=== PATIENT | female | born 1990 | race Caucasian/White ===

== ENCOUNTER 2023-02-19 14:17 | Outpatient (AMB) | payer OTHER, SELFPAY ==
--- NOTE | 2023-02-19 14:18 | MHC.OFFVIS ---
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 She states that for about 2 years she has been having left neck twitching lasting between a few seconds. SHe states they are constant, and intensify occasionally. She denies pain associated with this. Inspector And Mender Required: No Allergies amoxicillin [From Amoxil] Allergy (Intermediate, Verified 02/19/23 14:23) Vomiting flagyl Allergy (Mild, Uncoded 02/19/23 14:23) Hives Medication List - Last Reconciled 02/19/23 by Anne Copeland MD baclofen 5 mg PO BEDTIME desogestrel-ethinyl estradiol 0.15-0.03 mg (Apri) 1 tab PO DAILY magnesium oxide 400 mg PO DAILY HPI HPI Comments History of Present Illness Details 32y/o female comes for evaluation of muscle twitching in her neck on the lest side. It started about 2 years ago and it is constant. she is not aware of any triggering or relieving factors. she started having constant headaches few months ago . The headaches are in left parietal region - throbbing - ibuprofen helps. No light or noise sensitivity. No nause. she denies neck pain Denies pain. she had an episode of vertigo in spring - lasting 1 hr and another lasting 4-5 hrs. she has chronic sinus and ear issues , snores when supine. [facility] Medical History (Updated 02/19/23 @ 15:00 by Anne Copeland MD) Cervicogenic headache Cervicalgia Abnormal involuntary movements Seasonal allergies Head ache Surgical History Hx of tonsillectomy Family History Father No problems noted. Mother Diabetes HTN (hypertension) Brother No problems noted. Sister PCOS (polycystic ovarian syndrome) Social History Household Members: None Housing: Condominium Alcohol intake: current Patient Tobacco Use Status: Never used Tobacco Female Reproductive History Menstrual control method: pills Total pregnancies: 0 Review of Systems Const Reports fatigue, Reports headache(s) and Reports weight loss ENT Reports headache(s) Neuro Reports headache(s) Endo Reports fatigue Physical Exam Vital Signs: Last Vital Signs Pulse 72 02/19/23 14:19 Resp 16 02/19/23 14:19 BP 108/72 02/19/23 14:19 Pulse Ox 99 02/19/23 14:19 Oxygen Delivery Method Room Air 02/19/23 14:19 BMI result Body Mass Index 26.2 Const General: cooperative, healthy appearing, comfortable and no acute distress Nutritional Appearance: average body habitus Orientation/consciousness: patient oriented x3 HEENT Other: Neck tightness and tenderness on palpation in armando neck muscles , twitching of left splenius levator - involuntary and irregular Restricted mouth opening and neck movements Eyes Pupils: Equal, round and reactive pupils present Neuro General: patient oriented x3, gait normal, tone normal, moves all extremities and no focal motor deficits Cranial nerves: Yes Facial sensation intact/muscles of mastication intact, Yes Equal, round and reactive pupils present, Yes Bilaterally intact EOM present, Yes Nystagmus not present, Yes Normal facial strength present and Yes Midline tongue present Cognition (Neuro): normal cognition Gait exam (Neuro): Normal gait present Motor exam (neuro): 5/5 motor strength present throughout and Normal motor muscle tone present throughout Deep tendon reflexes (DTR's): Right triceps reflex intensity grade: 2+, Left triceps reflex intensity grade: 2+, Rt Biceps (C5, C6): 2+, Left biceps reflex intensity grade: 2+, Right brachioradialis reflex intensity grade: 2+, Left brachioradialis reflex intensity grade: 2+, Right patellar reflex intensity grade: 2+ and Left patellar reflex intensity grade: 2+ Coordination: kdcjml-kh-npjw test normal Assessment & Plan Assessment & Plan (1) Abnormal involuntary movements: Comment: Likely related to cervical dystonia Code(s): R25.9 - Unspecified abnormal involuntary movements (2) Cervicalgia: Code(s): M54.2 - Cervicalgia (3) Cervicogenic headache: Code(s): G44.86 - Cervicogenic headache Plan I will evaluate her with MRI brain EEG and C spine X ray I will trial her on magnesium 400mg qhs and baclofen 5 mg qhs will consider PT and botox next visit. Orders: Orders EEG electroencephalogram Today R25.9 - Unspecified abnormal involuntary movements XR cervical spine 3V Today M54.2 - Cervicalgia MR head/brain wo con Today R25.9 - Unspecified abnormal involuntary movements Medications: New baclofen 5 mg PO BEDTIME 30 tabs 5RF magnesium oxide 400 mg PO DAILY 30 caps 6RF Coding Level of Care Code New Pt Level 4 (05116) Diagnoses Abnormal involuntary movements R25.9 Cervicalgia M54.2 Cervicogenic headache G44.86
[2023-02-19 14:19] VITALS: BP 108/72; PULSE 72; RESP 16; O2SAT 99; BMI 26.2
== END 2023-02-19 14:56 | disposition home or self-care (01) ==
PROVIDERS: PCP Internal Medicine; Visit Provider Psychiatry & Neurology Neurology
DX: R25.9 Unspecified abnormal involuntary movements (principal); M54.2 Cervicalgia; G44.86 Cervicogenic headache
CPT/HCPCS: 99204

== ENCOUNTER → 2023-02-19 14:17 | Outpatient (BNVA) | payer OTHER, SELFPAY | PROVIDERS: PCP Internal Medicine; Visit Provider Psychiatry & Neurology Neurology ==

== ENCOUNTER 2023-04-08 07:57 | Outpatient (REF) | payer OTHER, SELFPAY ==
--- NOTE | 2023-04-08 08:01 | EEG_ITS ---
FINDINGS: Waking background activity consists of well-defined, moderate voltage, 9 to 9.5 hertz posterior alpha frequency that is seen symmetrically and attenuates well with eye opening while low-voltage fast frequencies predominate anteriorly. Photic stimulation is without activation. Hyperventilation was omitted. No focal, lateralizing, or paroxysmal discharges are seen. IMPRESSION: This waking EEG is within normal limits. MD BAYLEE Michel/DANNIE / [id number]
== END 2023-04-08 07:58 | disposition home or self-care (01) ==
LOC: HO.NEURO 07:57
PROVIDERS: PCP Internal Medicine; Visit Provider Psychiatry & Neurology Neurology
DX: R25.9 Unspecified abnormal involuntary movements (principal)
CPT/HCPCS: 95816

== ENCOUNTER 2023-05-14 14:37 | Outpatient (AMB) | payer OTHER, SELFPAY ==
--- NOTE | 2023-05-14 14:44 | A.OFFVIS_ITS ---
Intake Vital Signs 05/14/23 14:46 Height 5 ft 1 in Weight 135 lb BMI 25.5 BP 98/62 Blood Pressure Location Rt brachial Position Sitting Respiration 17 Pulse 77 Pulse Source Pulse Oximeter Pulse Oximetry (%) 97 Oxygen Delivery Method Room Air Intake Visit Reasons: 3 mnts f/u for Muscle Twitching-CONF Intake Note: Pt presents for a 2 month follow up for involuntary movement. 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 she takes magnesium qhs but still has increased headaches. It started about 2 years ago and it is constant. she is not aware of any triggering or relieving factors. she started having constant headaches few months ago . The headaches are in left parietal region - throbbing - ibuprofen helps. No light or noise sensitivity. No nausea. she denies neck pain Denies pain. she had an episode of vertigo in spring - lasting 1 hr and another lasting 4-5 hrs. she has chronic sinus and ear issues , snores when supine. [facility] Medical History (Updated 05/14/23 @ 15:02 by Anne Copeland MD) Spasmodic torticollis Cervicogenic headache Cervicalgia Abnormal involuntary movements Seasonal allergies Head ache Surgical History Hx of tonsillectomy Family History Father No problems noted. Mother Diabetes HTN (hypertension) Brother No problems noted. Sister PCOS (polycystic ovarian syndrome) Social History Household Members: None Housing: Condominium Alcohol intake: current Patient Tobacco Use Status: Never used Tobacco Physical Exam Vital Signs: Last Vital Signs Pulse 77 05/14/23 14:46 Resp 17 05/14/23 14:46 BP 98/62 05/14/23 14:46 Pulse Ox 97 05/14/23 14:46 Oxygen Delivery Method Room Air 05/14/23 14:46 BMI result Body Mass Index 25.5 Const General: cooperative, healthy appearing, comfortable and no acute distress Nutritional Appearance: average body habitus Orientation/consciousness: patient oriented x3 HEENT Other: Neck tightness and tenderness on palpation in armando neck muscles , twitching of left splenius levator - involuntary and irregular Restricted mouth opening and neck movements Eyes Pupils: Equal, round and reactive pupils present Neuro General: patient oriented x3, gait normal, tone normal, moves all extremities and no focal motor deficits Cranial nerves: Yes Facial sensation intact/muscles of mastication intact, Yes Equal, round and reactive pupils present, Yes Bilaterally intact EOM present, Ye s Nystagmus not present, Yes Normal facial strength present and Yes Midline tongue present Cognition (Neuro): normal cognition Gait exam (Neuro): Normal gait present Motor exam (neuro): 5/5 motor strength present throughout and Normal motor muscle tone present throughout Deep tendon reflexes (DTR's): Right triceps reflex intensity grade: 2+, Left triceps reflex intensity grade: 2+, Rt Biceps (C5, C6): 2+, Left biceps reflex intensity grade: 2+, Right brachioradialis reflex intensity grade: 2+, Left brachioradialis reflex intensity grade: 2+, Right patellar reflex intensity grade: 2+ and Left patellar reflex intensity grade: 2+ Coordination: qxderi-ev-wfgx test normal Assessment & Plan Assessment & Plan (1) Abnormal involuntary movements: Comment: Likely related to cervical dystonia Code(s): R25.9 - Unspecified abnormal involuntary movements (2) Cervicalgia: Code(s): M54.2 - Cervicalgia (3) Cervicogenic headache: Code(s): G44.86 - Cervicogenic headache (4) Spasmodic torticollis: Code(s): G24.3 - Spasmodic torticollis Plan C spine X ray I will trial her on botox to her left splenius levator and trapezius magnesium 400mg qhs and baclofen 5 mg qhs PT and botox next visit. Coding Level of Care Code Est Pt Level 4 (75605) Diagnoses Abnormal involuntary movements R25.9 Cervicalgia M54.2 Cervicogenic headache G44.86 Spasmodic torticollis G24.3
[2023-05-14 14:46] VITALS: BP 98/62; PULSE 77; RESP 17; O2SAT 97; BMI 25.5
== END 2023-05-14 15:09 | disposition home or self-care (01) ==
PROVIDERS: PCP Internal Medicine; Visit Provider Psychiatry & Neurology Neurology
DX: M54.2 Cervicalgia (principal); G44.86 Cervicogenic headache; G24.3 Spasmodic torticollis
CPT/HCPCS: 99214

== ENCOUNTER → 2023-05-14 14:37 | Outpatient (BNVA) | payer OTHER, SELFPAY | PROVIDERS: PCP Internal Medicine; Visit Provider Psychiatry & Neurology Neurology ==

== ENCOUNTER 2023-08-14 14:59 | Outpatient (AMB) | payer OTHER, SELFPAY ==
[2023-08-14 15:19] VITALS: BP 114/68; PULSE 86; RESP 16; O2SAT 100
--- NOTE | 2023-08-14 15:19 | A.OFFVIS_ITS ---
Vital Signs 08/14/23 15:19 Height 5 ft 1 in Weight 13 lb BMI 2.5 BP 114/68 Blood Pressure Location Rt brachial Position Sitting Respiration 16 Pulse 86 Pulse Source Pulse Oximeter Pulse Oximetry (%) 100 Oxygen Delivery Method Room Air Intake Visit Reasons: BOTOX-CONF Intake Note: Pt presents for Botox injections. Noc Engineer Required: No Allergies amoxicillin [From Amoxil] Allergy (Intermediate, Verified 08/14/23 15:19) Vomiting flagyl Allergy (Mild, Uncoded 08/14/23 15:19) Hives Medication List - Last Reconciled 08/14/23 by Anne Copeland MD baclofen 5 mg PO BEDTIME desogestrel-ethinyl estradiol 0.15-0.03 mg (Apri) 1 tab PO DAILY magnesium oxide 400 mg PO DAILY onabotulinumtoxinA (Botox) to be injected to neck muscles q 3 months; HPI Comments Details: 33y/o female comes for treatment of her cervical dystonia ? Side effects including spread of toxin effect, dysphagia, breathing difficulties , bronchitis etc was discussed in detail and the patient agreed to the procedure.An informed consent was obtained ??? Botulinum toxin type A 100units X 1 -was diluted with 2 cc of normal saline at a concentration of 25 units in 0.5cc saline. Lot number [id number] expiration 02/2025 ??? Muscles injected ??? left Splenius - 25 units each ??? left levator 50 units each ??? Right levator 25 units ??? Total used 100 units [facility] Medical History Spasmodic torticollis Cervicogenic headache Cervicalgia Abnormal involuntary movements Seasonal allergies Head ache Surgical History Hx of tonsillectomy Family History Father No problems noted. Mother Diabetes HTN (hypertension) Brother No problems noted. Sister PCOS (polycystic ovarian syndrome) Social History Household Members: None Housing: Condominium Alcohol intake: current Patient Tobacco Use Status: Never used Tobacco Physical Exam Vital Signs: Last Vital Signs Pulse 86 08/14/23 15:19 Resp 16 08/14/23 15:19 BP 114/68 08/14/23 15:19 Pulse Ox 100 08/14/23 15:19 Oxygen Delivery Method Room Air 08/14/23 15:19 BMI result Body Mass Index 2.5 Const General: cooperative, healthy appearing, comfortable and no acute distress Nutritional Appearance: average body habitus Orientation/consciousness: patient oriented x3 HEENT Other: Neck tightness and tenderness on palpation in armando neck muscles , twitching of left splenius levator - involuntary and irregular Restricted mouth opening and neck movements Neuro General: patient oriented x3, gait normal, tone normal, moves all extremities and no focal motor deficits Cognition (Neuro): normal cognition Gait exam (Neuro): Normal gait present Coordination: kixgsu-hi-ysur test normal Office Procedures Botulinum toxin Injection 99060 - Dystonia Procedure code (CPT) selection complete Office Meds onabotulinumtoxinA 100 unit solution for injection Performing Provider: Anne Copeland MD Performing Location: [facility] Administered by: Anne Copeland MD on 08/14/23 15:40 Dose Route Admin Location Dispensed Lot Number Expiration Date [facility] Cardiac Cath Lab Manager 100 unit IM 100 units [id number] 02/12/25 0470-8211-07 [employer] Comments: see HPI Assessment & Plan Assessment & Plan (1) Spasmodic torticollis: Code(s): G24.3 - Spasmodic torticollis Category: Medical (2) Cervicalgia: Code(s): M54.2 - Cervicalgia Category: Medical (3) Cervicogenic headache: Code(s): G44.86 - Cervicogenic headache Category: Medical Plan The patient tolerated the procedure well she will call with any side effects Orders: Orders AMB Botulinum toxin Injection - Patient Supplied Today G24.3 - Spasmodic torticollis Medications: New onabotulinumtoxinA 100 units IM ONCE 1 ea 0RF spasmodic torticollis G24.3 - Spasmodic torticollis Refilled baclofen 5 mg PO BEDTIME 30 tabs 5RF magnesium oxide 400 mg PO DAILY 30 caps 6RF Coding Level of Care Code Est Pt Level 1 (60307) Diagnoses Spasmodic torticollis G24.3 Cervicalgia M54.2 Cervicogenic headache G44.86 CPT Codes Botox Injection - Botox 4: 40928 - Dystonia ([id number])
== END 2023-08-14 15:45 | disposition home or self-care (01) ==
PROVIDERS: PCP Internal Medicine; Visit Provider Psychiatry & Neurology Neurology
DX: G24.3 Spasmodic torticollis (principal)
CPT/HCPCS: 64616

== ENCOUNTER → 2023-08-14 14:59 | Outpatient (BNVA) | payer OTHER, SELFPAY | PROVIDERS: PCP Internal Medicine; Visit Provider Psychiatry & Neurology Neurology | DX: G24.3 Spasmodic torticollis (principal); M54.2 Cervicalgia; G44.86 Cervicogenic headache | CPT/HCPCS: 64616; 99211; J0585 ==

== ENCOUNTER 2023-12-04 08:24 | Outpatient (AMB) | payer OTHER, SELFPAY ==
--- NOTE | 2023-12-04 08:29 | MHC.OFFVIS ---
Vital Signs 12/04/23 08:30 Height 5 ft 1 in Weight 135 lb BMI 25.5 BP 98/64 Blood Pressure Location Rt brachial Position Sitting Respiration 16 Pulse 65 Pulse Source Pulse Oximeter Pulse Oximetry (%) 100 Oxygen Delivery Method Room Air Intake Visit Reasons: BOTOX - Confirmed Intake Note: Pt presents to the office for Botox injections for cervicalgia. Trim Operator Required: No Allergies amoxicillin [From Amoxil] Allergy (Intermediate, Verified 12/04/23 08:30) Vomiting flagyl Allergy (Mild, Uncoded 12/04/23 08:30) Hives Medication List - Last Reconciled 12/04/23 by Anne Copeland MD baclofen 5 mg PO BEDTIME desogestrel-ethinyl estradiol 0.15-0.03 mg (Apri) 1 tab PO DAILY magnesium oxide 400 mg PO DAILY onabotulinumtoxinA (Botox) to be injected to neck muscles q 3 months; HPI Comments Details: 33y/o female comes for treatment of her cervical dystonia ? Side effects including spread of toxin effect, dysphagia, breathing difficulties , bronchitis etc was discussed in detail and the patient agreed to the procedure.An informed consent was obtained ??? Botulinum toxin type A 100units X 1 -was diluted with 2 cc of normal saline at a concentration of 25 units in 0.5cc saline. Lot number [id number] expiration 10/2025 ??? Muscles injected ??? left Splenius - 25 units each ??? left levator 50 units each ??? Right levator 25 units ??? Total used 100 units [facility] Medical History Spasmodic torticollis Cervicogenic headache Cervicalgia Abnormal involuntary movements Seasonal allergies Head ache Surgical History Hx of tonsillectomy Family History Father No problems noted. Mother Diabetes HTN (hypertension) Brother No problems noted. Sister PCOS (polycystic ovarian syndrome) Social History Household Members: None Housing: Condominium Alcohol intake: current Patient Tobacco Use Status: Never used Tobacco Physical Exam Vital Signs: Last Vital Signs Pulse 65 12/04/23 08:30 Resp 16 12/04/23 08:30 BP 98/64 12/04/23 08:30 Pulse Ox 100 12/04/23 08:30 Oxygen Delivery Method Room Air 12/04/23 08:30 BMI result Body Mass Index 25.5 Const General: cooperative, healthy appearing, comfortable and no acute distress Nutritional Appearance: average body habitus Orientation/consciousness: patient oriented x3 HEENT Other: Neck tightness and tenderness on palpation in armando neck muscles , twitching of left splenius levator - involuntary and irregular Restricted mouth opening and neck movements Neuro General: patient oriented x3, gait normal, tone normal, moves all extremities and no focal motor deficits Cognition (Neuro): normal cognition Gait exam (Neuro): Normal gait present Coordination: inisur-wt-bxkw test normal Office Procedures Botulinum toxin Injection 85076 - Dystonia Procedure code (CPT) selection complete Office Meds onabotulinumtoxinA 100 unit solution for injection Performing Provider: Anne Copeland MD [place] [facility] [place] [facility] Administered by: Anne Copeland MD on 12/04/23 09:12 Dose Route Admin Location Dispensed Lot Number Expiration Date [facility] Reinforcing Bar Setter 100 unit IM 100 units [id number] 10/12/25 1652-0665-94 [employer] Comments: see HPI Assessment & Plan Assessment & Plan (1) Spasmodic torticollis: Code(s): G24.3 - Spasmodic torticollis Category: Medical (2) Cervicalgia: Code(s): M54.2 - Cervicalgia Category: Medical (3) Cervicogenic headache: Code(s): G44.86 - Cervicogenic headache Category: Medical Plan The patient tolerated the procedure well she will call with any side effects Orders: Orders AMB Botulinum toxin Injection - Patient Supplied Today G24.3 - Spasmodic torticollis Medications: New onabotulinumtoxinA 100 units IM ONCE 1 ea 0RF Spasmodic torticollis G24.3 - Spasmodic torticollis Coding Level of Care Code Est Pt Level 1 (35220) Diagnoses Spasmodic torticollis G24.3 Cervicalgia M54.2 Cervicogenic headache G44.86 CPT Codes Botox Injection - Botox 4: 54280 - Dystonia ([id number])
[2023-12-04 08:30] VITALS: BP 98/64; PULSE 65; RESP 16; O2SAT 100; BMI 25.5
== END 2023-12-04 09:02 | disposition home or self-care (01) ==
PROVIDERS: PCP Internal Medicine; Visit Provider Psychiatry & Neurology Neurology
DX: G24.3 Spasmodic torticollis (principal); M54.2 Cervicalgia; G44.86 Cervicogenic headache
CPT/HCPCS: 64616

== ENCOUNTER → 2023-12-04 08:24 | Outpatient (BNVA) | payer OTHER, SELFPAY | PROVIDERS: PCP Internal Medicine; Visit Provider Psychiatry & Neurology Neurology | DX: G24.3 Spasmodic torticollis (principal); M54.2 Cervicalgia; G44.86 Cervicogenic headache | CPT/HCPCS: 64616; 99211; J0585 ==

== ENCOUNTER 2024-05-11 10:21 | Outpatient (AMB) | payer OTHER, SELFPAY ==
--- NOTE | 2024-05-11 10:22 | A.OFFVIS_ITS ---
Vital Signs 05/11/24 10:23 Height 5 ft Intake Visit Reasons: BOTOX Intake Note: Patient presents for botox injection Allergies amoxicillin [From Amoxil] Allergy (Intermediate, Verified 05/11/24 10:25) Vomiting flagyl Allergy (Mild, Uncoded 05/11/24 10:25) Hives Medication List - Last Reconciled 05/11/24 by Anne Coepland MD baclofen 5 mg PO BEDTIME desogestrel-ethinyl estradiol 0.15-0.03 mg (Apri) 1 tab PO DAILY magnesium oxide 400 mg PO DAILY onabotulinumtoxinA (Botox) to be injected to neck muscles q 3 months; HPI Comments Details: 34y/o female comes for treatment of her cervical dystonia ? Side effects including spread of toxin effect, dysphagia, breathing difficulties , bronchitis etc was discussed in detail and the patient agreed to the procedure.An informed consent was obtained ??? Botulinum toxin type A 100units X 1 -was diluted with 2 cc of normal saline at a concentration of 25 units in 0.5cc saline. Lot number [id number] expiration 07/2026 ??? Muscles injected ??? left Splenius - 25 units each ??? left levator 50 units each ??? Right levator 25 units ??? Total used 100 units [facility] Medical History Spasmodic torticollis Cervicogenic headache Cervicalgia Abnormal involuntary movements Seasonal allergies Head ache Surgical History Hx of tonsillectomy Family History Father No problems noted. Mother Diabetes HTN (hypertension) Brother No problems noted. Sister PCOS (polycystic ovarian syndrome) Social History Household Members: None Housing: Condominium Alcohol intake: current Patient Tobacco Use Status: Never used Tobacco Physical Exam Const General: cooperative, healthy appearing, comfortable and no acute distress Nutritional Appearance: average body habitus Orientation/consciousness: patient oriented x3 HEENT Other: Neck tightness and tenderness on palpation in armando neck muscles , twitching of left splenius levator - involuntary and irregular Restricted mouth opening and neck movements Neuro General: patient oriented x3, gait normal, tone normal, moves all extremities and no focal motor deficits Cognition (Neuro): normal cognition Gait exam (Neuro): Normal gait present Coordination: aklmol-ea-pkat test normal Office Procedures Botulinum toxin Injection 53483 - Dystonia Procedure code (CPT) selection complete Office Meds onabotulinumtoxinA 100 unit solution for injection Performing Provider: Anne Copeland MD Performing Location: [facility] Administered by: Anne Copeland MD on 05/11/24 10:47 Dose Route Admin Location Dispensed Lot Number Expiration Date [facility] Stationary Equipment Mechanic 100 unit IM 100 units [id number] [employer] Comments: see HPI Assessment & Plan Assessment & Plan (1) Spasmodic torticollis: Code(s): G24.3 - Spasmodic torticollis Category: Medical (2) Cervicalgia: Code(s): M54.2 - Cervicalgia Category: Medical (3) Cervicogenic headache: Code(s): G44.86 - Cervicogenic headache Category: Medical Plan The patient tolerated the procedure well she will call with any side effects Orders: Orders AMB Botulinum toxin Injection - Patient Supplied N/C Today G24.3 - Spasmodic torticollis XR cervical spine 3V Today M54.2 - Cervicalgia Medications: New onabotulinumtoxinA 100 units IM ONCE 1 ea 0RF spasmodic torticollis G24.3 - Spasmodic torticollis Coding Level of Care Code Tele Est Pt Level 1 (63375) Diagnoses Spasmodic torticollis G24.3 Cervicalgia M54.2 Cervicogenic headache G44.86 CPT Codes Botox Injection - Botox 4: 07820 - Dystonia ([id number])
--- OUTSIDE RECORDS SUMMARY | 2024-05-11 11:13 | XMS_ITS | Clinical Summary ---
Author Organization [facility] Address [address] [place] [address] Care Team Providers Care Hot Shot Name Role Phone Unavailable Primary Care Provider Unavailabl e Social History Tobacco Use Types Packs/Day Years Used Date Smoking Tobacco: Never Assessed Sex and Gender Information Value Date Recorded Sex Assigned at Not on file Gender Identity Not on file Sexual Orientation Not on file Plan of Treatment Health Maintenance Due Date Last Done Comments Hepatitis B Vaccines (1 of 3 - 3-dose series) 1989 Hepatitis C Screening 1989 COVID-19 Vaccine (#1) 1989 Depression Screening 2001 Preventative Health Evaluation 2007 DTap / Tdap / Td (1 - Tdap) 2008 Cervical Cancer Screening (P ap Smear) 2010 Influenza Vaccine (#1) 2023 Pneumococcal Vaccine Aged Out No long er eligible based on patient's age to complete this topic RSV Ped < 20 months Aged Out No longe r eligible based on patient's age to complete this topic
== END 2024-05-11 10:57 | disposition home or self-care (01) ==
PROVIDERS: PCP Internal Medicine; Visit Provider Psychiatry & Neurology Neurology
DX: G24.3 Spasmodic torticollis (principal)
CPT/HCPCS: 64616; 99211

== ENCOUNTER → 2024-05-11 10:21 | Outpatient (BNVA) | payer OTHER, SELFPAY | PROVIDERS: PCP Internal Medicine; Visit Provider Psychiatry & Neurology Neurology | DX: G24.3 Spasmodic torticollis (principal); M54.2 Cervicalgia; G44.86 Cervicogenic headache | CPT/HCPCS: 64616; J0585 ==

== ENCOUNTER 2024-08-17 15:21 | Outpatient (AMB) | payer OTHER, SELFPAY ==
[2024-08-17 15:22] VITALS: PULSE 68; O2SAT 99; BMI 27.7
--- NOTE | 2024-08-17 15:22 | MHC.OFFVIS ---
Vital Signs 08/17/24 15:22 Height 5 ft Weight 142 lb BMI 27.7 Pulse 68 Pulse Source Pulse Oximeter Pulse Oximetry (%) 99 Oxygen Delivery Method Room Air Intake Visit Reasons: Botox Intake Note: patient presents for botox injection. patient supplied. called patient to see if x-rays were done no response lvm Allergies amoxicillin [From Amoxil] Allergy (Intermediate, Verified 08/17/24 15:25) Vomiting flagyl Allergy (Mild, Uncoded 08/17/24 15:25) Hives Medication List - Last Reconciled 08/17/24 by Anne Copeland MD baclofen 5 mg PO BEDTIME desogestrel-ethinyl estradiol 0.15-0.03 mg (Apri) 1 tab PO DAILY magnesium oxide 400 mg PO DAILY onabotulinumtoxinA (Botox) to be injected to neck muscles q 3 months; HPI Comments Details: 34y/o female comes for treatment of her cervical dystonia ? Side effects including spread of toxin effect, dysphagia, breathing difficulties , bronchitis etc was discussed in detail and the patient agreed to the procedure.An informed consent was obtained ??? Botulinum toxin type A 100units X 1 -was diluted with 2 cc of normal saline at a concentration of 25 units in 0.5cc saline. Lot number [id number] expiration 08/2026 ??? Muscles injected ??? left Splenius - 25 units each ??? left levator 50 units each ??? Right levator 25 units ??? Total used 100 units [facility] Medical History Spasmodic torticollis Cervicogenic headache Cervicalgia Abnormal involuntary movements Seasonal allergies Head ache Surgical History Hx of tonsillectomy Family History Father No problems noted. Mother Diabetes HTN (hypertension) Brother No problems noted. Sister PCOS (polycystic ovarian syndrome) Social History Household Members: None Housing: Condominium Alcohol intake: current Patient Tobacco Use Status: Never used Tobacco Physical Exam Vital Signs: Last Vital Signs Pulse 68 08/17/24 15:22 Pulse Ox 99 08/17/24 15:22 Oxygen Delivery Method Room Air 08/17/24 15:22 BMI result Body Mass Index 27.7 Const General: cooperative, healthy appearing, comfortable and no acute distress Nutritional Appearance: average body habitus Orientation/consciousness: patient oriented x3 HEENT Other: Neck tightness and tenderness on palpation in armando neck muscles , twitching of left splenius levator - involuntary and irregular Restricted mouth opening and neck movements Neuro General: patient oriented x3, gait normal, tone normal, moves all extremities and no focal motor deficits Cognition (Neuro): normal cognition Gait exam (Neuro): Normal gait present Coordination: [id number] test normal Office Procedures Botulinum toxin Injection 75110 - Dystonia Procedure code (CPT) selection complete Office Meds onabotulinumtoxinA 100 unit solution for injection Performing Provider: Anne Copeland MD Performing Location: [facility] [place] [facility] Administered by: Anne Copeland MD on 08/17/24 15:52 Dose Route Admin Location Dispensed Lot Number Expiration Date [facility] [place] Laboratory Chemical Assistant 100 unit IM 100 units [id number] ALLERGAN/BOTOX Comments: see HPI Assessment & Plan Assessment & Plan (1) Spasmodic torticollis: Code(s): G24.3 - Spasmodic torticollis Category: Medical (2) Cervicalgia: Code(s): M54.2 - Cervicalgia Category: Medical (3) Cervicogenic headache: Code(s): G44.86 - Cervicogenic headache Category: Medical Plan The patient tolerated the procedure well she will call with any side effects Orders: Orders AMB Botulinum toxin Injection - Patient Supplied N/C Today G24.3 - Spasmodic torticollis Medications: New onabotulinumtoxinA 100 units IM ONCE 1 ea 0RF cervical dystonia G24.3 - Spasmodic torticollis Coding Level of Care Code Est Pt Level 1 (34203) Diagnoses Spasmodic torticollis G24.3 Cervicalgia M54.2 Cervicogenic headache G44.86 CPT Codes Botox Injection - Botox 4: 12546 - Dystonia ([id number])
--- OUTSIDE RECORDS SUMMARY | 2024-08-17 16:32 | XMS_ITS ---
Author Name [facility] Organization Unknown History of Medication Use Medication Directions Dispensed Refills Start Date End Date Stat us Apri 0.15-30 MG-MCG per tablet Take 1 tablet by mouth daily. 01/11/2023 active fluconazole (diFLUcan) 150 MG tablet Take 1 tablet (150 mg total) by mouth every third day (72 hrs). 07/17/2021 active Problems Problem Status Onset Date Problem Type Date of Resoluti on Source Screen for STD (sexually transmitted disease) active EncounterDiagnosisAct HHCCT Encounters Encounter Type Encounter Reason Primary Diagnosis Location Date Ambulatory Encounter for screening for infections with a predominantly sexual mode of transmission Encounter for screening for infections with a predominantly sexual mode of transmission [email or web address] 01/18/2023 Ambulatory Candidiasis of v ulva and vagina [email or web address] 07/17/2021 Care Team Organization Name Specialty Phone Email Start Date End Da te [email or web address] PCP,No Primary Care 01/18/2023 06/30/2024 [email or web address] NO PCP Primary Care 01/18/2023 01/18/2023 [email or web address] 07/17/2021 06/30/2024 [email or web address] 07/17/2021 07/17/2021
--- OUTSIDE RECORDS SUMMARY | 2024-08-17 16:32 | XMS_ITS | Clinical Summary ---
Author Organization [facility] Address [address] [place] [address] Care Team Providers Care Egg Setter Name Role Phone Unavailable Primary Care Provider [...]
--- OUTSIDE RECORDS SUMMARY | 2024-08-17 16:32 | XMS_ITS | Clinical Summary ---
Author Organization [facility] Address [address] [place] [address] Care Team Providers Care Applications Administrator Name Role Phone Pcp, No Primary Care Provider Unavailabl e Allergies Active Allergy Reactions Criticality Noted Date Comments Amoxicillin-Pot Clavulanate GI Intolerance/Nausea/Vom iting Low 01/18/2023 Sulfamethoxazole-Trimethopr im Other (See Comments) 07/17/2021 Chest Pain Nitrofurantoin Other (See Comments) 07/17/2021 Chest Pain Metronidazole Other (See Comments) 01/18/2023 Medications fluconazole (diFLUcan) 150 MG tabletIndication s:Yeast vaginitis Take 1 tablet (150 mg total) by mouth every third day (72 hrs). 2 tablet 07/17/2021 Active Apri 0.15-30 MG-MCG per tablet Take 1 tablet by mouth daily. 01/11/2023 Active Active Problems No known active problems Social History Tobacco Use Types Packs/Day Years Used Date Smoking Tobacco: Never Assessed Comments Unknown Sex and Gender Information Value Date Recorded Sex Assigned at Not on file Legal Sex Female 3:30 PM EDT Gender Identity Not on file Sexual Orientation Not on file Last Filed Vital Signs Vital Sign Reading Time Taken Comments Blood Pressure 120/85 01/18/2023 3:57 PM EDT Pulse 78 01/18/2023 3:57 PM EDT Temperature 36.7 ??C (98.1 ??F) 01/18/2023 3:57 PM ED T Respiratory Rate 18 01/18/2023 3:57 PM EDT Oxygen Saturation 100% 01/18/2023 3:57 PM EDT Inhaled Oxygen Concentration - - Weight 63.5 kg (140 lb) 01/18/2023 3:57 PM EDT Height 154.9 cm (5' 1 ) 01/18/2023 3:57 PM EDT Body Mass Index 26.45 01/18/2023 3:57 PM EDT Plan of Treatment Health Maintenance Due Date Last Done Comments Hepatitis C Virus Screening 1989 HIV Screening 2002 DTaP/Tdap/Td Vaccines (1 - Tdap) 2008 Hepatitis B Vaccines (1 of 3 - 19+ 3-dose series) 2008 Pap Smear (Ages 21-65) 2010 Influenza Vaccine 11/13/2023 COVID-19 Vaccine (1 - 2023-2 5 season) 2023 HPV Vaccines Aged Out No longer eligi ble based on patient's age to complete this topic Pneumococcal Vaccine: Pediat joe (0-5 Years) and At-Risk Patients (6 to 49 Years) Aged Out No longer eligible b ased on patient's age to complete this topic Insurance [facility] HMO/POS Care Teams Applications Administrator Relationship Specialty Start Date End Date Pcp, No PCP - General General Medicine 07/17/21
== END 2024-08-17 15:44 | disposition home or self-care (01) ==
LOC: HO.HSMS 15:22
PROVIDERS: PCP Internal Medicine; Visit Provider Psychiatry & Neurology Neurology
DX: G24.3 Spasmodic torticollis (principal)
CPT/HCPCS: 64616

== ENCOUNTER → 2024-08-17 15:21 | Outpatient (BNVA) | payer OTHER, SELFPAY | PROVIDERS: PCP Internal Medicine; Visit Provider Psychiatry & Neurology Neurology | DX: G24.3 Spasmodic torticollis (principal); M54.2 Cervicalgia; G44.86 Cervicogenic headache | CPT/HCPCS: 64616; 99211; J0585 ==